=== PATIENT | female | born 1975 | race Caucasian/White ===

== ENCOUNTER → 2020-06-27 14:55 | Outpatient (CLI) | payer BC, SELFPAY ==
--- NOTE | ~2020-06-27 | US_ITS ---
EXAMINATION: US pelvic complete w TV DATE: 06/27/2020 15:40 INDICATION: Pelvic pain Comparison:No prior studies for comparison. TECHNIQUE: Multiple transabdominal and endovaginal sonographic images of the pelvis performed. FINDINGS: The uterus measures 9.3 x 3.4 x 4.72. There is a uterine fibroid anteriorly measuring 2.9 x 2.7 x 2 cm. The endometrial complex measures 8 mm. The ovaries are unremarkable. There is no free fluid in the pelvis. There are no abnormal masses seen on either side. IMPRESSION: 1. Uterine fibroid anteriorly measuring 2.9 cm. 2: Endometrium mildly prominent measuring 8 mm which is abnormal if the patient is postmenopausal. Cl inically correlate. Reviewed, dictated and finalized at location [facility]. IMPRESSION: 1. Uterine fibroid anteriorly measuring 2.9 cm. 2: Endometrium mildly prominent measuring 8 mm which is abnormal if the patient is postmenopausal. Clinically correlate.
== END ==
PROVIDERS: PCP Registered Nurse; Visit Provider Registered Nurse
DX: R10.2 Pelvic and perineal pain (principal); D25.9 Leiomyoma of uterus, unspecified
CPT/HCPCS: 76830; 76856

== ENCOUNTER → 2020-10-26 15:58 | Outpatient (CLI) | payer BC, SELFPAY ==
--- NOTE | ~2020-10-26 | MM_ITS ---
EXAMINATION: MM screening mario BI w naya HISTORY: Screening mammogram TECHNIQUE: Craniocaudal and mediolateral oblique 3-D tomosynthesis images were obtained and synthetic 2-D images were generated. CAD analysis was submitted and interpreted. COMPARISON: No prior mammogram is available for comparison at this institution. BREAST PARENCHYMAL COMPOSITION: There are scattered areas of fibroglandular density. FINDINGS: There is no evidence of suspicious mass, calcification, or architectural distortion to sugg est malignancy in either breast. There has been no suspicious interval change. IMPRESSION: 1. No mammographic evidence of malignancy. 2. Recommend routine screening mammography in one year. BI-RADS Category 1: Negative Reviewed, dictated and finalized at location A. [employer]
== END ==
PROVIDERS: PCP Registered Nurse; Visit Provider Registered Nurse
DX: Z12.31 Encounter for screening mammogram for malignant neoplasm of breast (principal)
CPT/HCPCS: 77063; 77067

== ENCOUNTER 2021-02-18 13:02 | Emergency (ER) | payer BC, SELFPAY ==
--- NOTE | 2021-02-18 14:01 | PC.NURSE ---
Call to triage, no answer.
[2021-02-18 14:10] VITALS: BP 150/105; PULSE 114; RESP 20; TEMP 36.6; O2SAT 99
[2021-02-18 14:41] LABS: Basophils Percent Auto 0.3 % (0.2-1.2); Eosinophils Percent Auto 0.4 % (0-4.4); Hematocrit 40.9 % (37.0-47.0); Hemoglobin 14.3 g/dL (12.0-15.0); Immature Granulocyte Absolute 0.03 K/mm3 (0.00-0.031); Immature Granulocyte Percent A 0.3 % (0-0.5); Lymphocytes Absolute Auto 2.06 K/mm3 (0.9-3.2); Mean Corpuscular Volume 88.7 fl (80-100); Monocytes Absolute Auto 0.5 K/mm3 (0.1-0.6); Monocytes Percent Auto 5.1 % (2.6-8.5); Neutrophils Absolute Auto 6.3 K/mm3 (1.3-6.7); Neutrophils Percent Auto 70.9 % (45.5-73.1); Platelet Count Result 292 k/mm3 (150-375); Red Blood Count 4.61 M/mm3 (4.2-5.4); Red Cell Distribution Width 12.1 % (11.5-14.5); White Blood Count 8.9 K/mm3 (4.5-10.0)
[2021-02-18 14:46] LABS: Add Urine Microscopic? YES; Appearance Urine Cloudy (Clear); Bacteria Urine 2+ /hpf; Bilirubin Urine Negative (Negative); Blood Urine 1+ (Negative); Color Urine Yellow (Yellow); Glucose Urine UA Negative (Negative); Ketones Urine Trace mg/dL (Negative); Leukocyte Esterase Ur 2+ LEU/UL (Negative); Mucus Urine Rare /lpf; Nitrate Urine Negative (Negative); Protein Urine Negative (Negative); Specific Grav Ur 1.013 (1.001-1.035); Squamous Epithelial Cell Urine Many /hpf (Few); Urobilinogen Urine Negative mg/dL (<2.0); WBC Urine 16-20 /hpf
[2021-02-18 15:05] LABS: Alanine Aminotransferase 42 U/L (4-35); Albumin Level 4.3 g/dL (3.5-5.1); Alkaline Phosphatase 54 U/L (38-126); Anion Gap 9 mmol/L (8-16); Aspartate Amino Transferase 68 U/L (14-36); Bilirubin,Total 0.3 mg/dL (0.2-1.3); Blood Urea Nitrogen 12 mg/dL (7-17); Calcium 9.3 mg/dL (8.4-10.2); Carbon Dioxide 25 mmol/L (22-30); Chloride 102 mmol/L (98-107); Estimated CRCL calculation 100 ml/min; Estimated Glomerular Filt Rate > 60; Glucose 131 mg/dL (65-105); Potassium 3.7 mmol/L (3.4-5.0); Sodium 136 mmol/L (137-145)
[2021-02-18 15:18] LABS: Troponin I < 0.012 ng/mL (0.000-0.034)
[2021-02-18 15:42] VITALS: BP 160/84; PULSE 78; RESP 18; O2SAT 99
--- NOTE | 2021-02-18 16:34 | ED.GENADULT ---
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 patient notes that she is on lisinopril presented to emergency department for evaluation after which she did recently get started on a new medication for anxiety which she just began taking patient is followed by her primary care doctor for these findings on arrival has no complaints and is feeling better had blood work drawn in triage which is unremarkable Review of Systems Review of Systems: All systems reviewed & are unremarkable except as noted in HPI and below PMFSH Past Medical History Medical History Anxiety Hypertension Exam Narrative: Exam Narrative: GENERAL: Well-appearing, well-nourished, and in no acute distress. HEAD: Normocephalic, atraumatic. EYES: PERRLA and EOMI. ENT: Nares clear, no rhinorrhea or epistaxis. Mucous membranes moist. CHEST: Clear to auscultation. No respiratory distress. No wheezes rales or rhonchi HEART: Regular rate and rhythm. No murmur heard. Normal peripheral pulses. EXTREMITIES: Normal range of motion. No edema. SKIN: Warm, dry, no rash. NEURO: No focal deficits. Alert and oriented x3. Cranial nerves II through XII grossly intact PSYCH: Normal mood and affect. Course Course Emergency Course: Patient presented with anxiety in the room in no distress at this time her hypertension I feel is likely related to anxiety her pressures have continued to be elevated but other than elevated blood pressure readings has had no other symptoms at this time there are no high risk changes in her evaluation it is felt that she can be discharged she will keep a record of her blood pressures and will have her follow with her primary care for this and has been provided with reasons to return she is agreeing with this plan Vital Signs Vital signs: Vital Signs Temperature 97.8 F 02/18/21 14:10 Pulse Rate 114 H 02/18/21 14:10 Respiratory Rate 20 02/18/21 14:10 Blood Pressure 150/105 H 02/18/21 14:10 Pulse Oximetry 99 02/18/21 14:10 Temperature 97.8 F 02/18/21 14:10 Pulse Rate 78 02/18/21 15:42 Respiratory Rate 18 02/18/21 15:42 Blood Pressure 160/84 H 02/18/21 15:42 Pulse Oximetry 99 02/18/21 15:42 Medical Decision Making MDM Narrative Medical decision making narrative: Patient in the room in no distress aware of case findings treatment plan and diagnosis agreeing to follow-up as instructed felt appropriate for outpatient reevaluation Vital Signs Vital Signs: Vital Signs Temperature 97.8 F 02/18/21 14:10 Pulse Rate 114 H 02/18/21 14:10 Respiratory Rate 20 02/18/21 14:10 Blood Pressure 150/105 H 02/18/21 14:10 Pulse Oximetry 99 02/18/21 14:10 Temperature 97.8 F 02/18/21 14:10 Pulse Rate 78 02/18/21 15:42 Respiratory Rate 18 02/18/21 15:42 Blood Pressure 160/84 H 02/18/21 15:42 Pulse Oximetry 99 02/18/21 15:42 Lab Data Result diagrams: 02/18/21 14:20 02/18/21 14:19 Labs: Lab Results 02/18/21 02/18/21 02/18/21 Range/Units 14:19 14:20 14:20 WBC 8.9 (4.5-10.0) K/mm3 RBC 4.61 (4.2-5.4) M/mm3 Hgb 14.3 (12.0-15.0) g/dL Hct 40.9 (37.0-47.0) % MCV 88.7 (80-100) fl MCH 31.0 (26-34) pg MCHC 35.0 (32-36) g/dl RDW 12.1 (11.5-14.5) % Plt Count 292 (150-375) k/mm3 MPV 9.0 (7.4-10.4) fl Immature Gran % (Auto) 0.3 (0-0.5) % Neut % (Auto) 70.9 (45.5-73.1) % Lymph % (Auto) 23.0 (18.3-44.2) % [place] % (Aut
== END 2021-02-18 17:31 | disposition home or self-care (01) ==
PROVIDERS: Emergency Medicine; Emergency Provider Emergency Medicine; PCP Registered Nurse
DX: I10 Essential (primary) hypertension (principal); F41.9 Anxiety disorder, unspecified
CPT/HCPCS: 36415; 80053; 81001; 81025; 84484; 85025; 87086; 87088; 99284

== ENCOUNTER → 2021-06-07 15:04 | Outpatient (CLI) | payer BC, SELFPAY ==
--- NOTE | ~2021-06-07 | US_ITS ---
US pelvic complete w TV DATE: 06/07/2021 15:32 INDICATION: Pelvic pain, left lower quadrant abdominal pain. Irregular vaginal bleeding. TECHNIQUE: Real-time imaging via transabdominal and transvaginal approaches COMPARISON: None FINDINGS: The uterus measures 8.1 cm height, 3.9 cm anteroposterior and 5.8 cm transverse dimension. The central endometrial echo complex measures approximately 8 mm AP dimension. Right ovary 1.9 x 1 x 1.8 cm, with vascular flow. Left ovary 2.3 x 2.2 x 1.8 cm, with vascular flow. No pelvic mass lesion or abnormal pelvic fluid collection is detected. IMPRESSION: No significant abnormality Reviewed, dictated and finalized at [facility]. Reviewed, dictated and finalized at location A. IMPRESSION: No significant abnormality
== END ==
PROVIDERS: PCP Student in an Organized Health Care Education/Training Program; Visit Provider Registered Nurse
DX: R10.2 Pelvic and perineal pain (principal)
CPT/HCPCS: 76830; 76856

== ENCOUNTER 2022-03-11 00:05 | Day surgery (SDC) | payer BC, SELFPAY ==
[2022-02-24 13:21] VITALS: BMI 28.4
[2022-03-11 06:35] VITALS: BP 129/97; PULSE 100; RESP 20; TEMP 36.1; O2SAT 99; BMI 29.3
[2022-03-11] MEDS: LACTATED RINGERS 1,000 ML 150 ML IV CONT (06:48)
--- NOTE | 2022-03-11 06:57 | WPDANESEPPF ---
Anes - Initial Pre Proc Eval Procedure: Operation Date: 03/11/22 07:30 Proposed Procedures p Colonoscopy - Gelacio Beltran MD Date/Time: 03/11/22 06:57 Surgeon: Gelacio Beltran MD Pre Op Diagnosis: Rectal Bleeding Patient Data Age: 46 Gender: F Height: 1.68 m Weight: 82.4 kg Last Vital Signs Temp 36.1 C L 03/11/22 06:35 Pulse 100 03/11/22 06:35 Resp 20 03/11/22 06:35 BP 129/97 H 03/11/22 06:35 Pulse Ox 99 03/11/22 06:35 O2 Del Method Room Air 03/11/22 06:35 Allergies Allergy/AdvReac Type Severity Reaction Status Date / Time Sulfa (Sulfonamide Allergy Vomiting Verified 03/11/22 06:20 Antibiotics) Home Medications Medication Instructions Recorded Confirmed Type alprazolam 0.5 mg tablet 0.5 mg PO DAILY PRN Anxiety 02/24/22 02/24/22 History buspirone 10 mg tablet 10 mg PO DAILY 02/24/22 02/24/22 History hydrochlorothiazide 12.5 mg tablet 12.5 mg PO DAILY 02/24/22 02/24/22 History lisinopril 10 mg tablet 10 mg PO DAILY 02/24/22 02/24/22 History norethindrone 1 mg-ethinyl 1 tablet PO DAILY 02/24/22 02/24/22 History estradiol 20 mcg (21)-iron 75 mg (7) tablet (Aurovela Fe 1-20 (28)) Patient hx anesthesia problems: none Family hx anesthesia problems: none Results Review: All pre-operative results and documents have been reviewed as part of the pre-operative evaluation. [facility] Past Medical History Medical History (Updated 03/11/22 @ 06:57 by Rafa Costa MD) Anxiety Hypertension Overweight Surgical History Surgical History (Updated 03/11/22 @ 06:58 by Rafa Costa MD) H/O colonoscopy Social History Social History Smoking packs per day: 1 Smoking cigarettes per day: 20.0 Years smoked: 10 Smoking pack-years: 10.00 Smoking status: Former smoker Alcohol intake: never Substance use: never Substance use type: does not use Living arrangements: with family Spiritual care concerns: No Anes - Eval Final PreProcedure Day of Procedure 03/11/22 06:57 Patient weight: overweight Heart: regular rate and rhythm Lungs: clear to auscultation Airway: Mallampati scale class 1 Last oral intake: >/= 8 hours ASA classification: II Emergent: no Anesthetic plan: proceed Anesthesia type and monitoring: general GIVS and standard monitoring Results Review: All pre-operative results and documents have been reviewed as part of the pre-operative evaluation. Informed Consent: The patient's anesthetic plan and its attendant risks and benefits were discussed with the patient/family/POA. Questions were solicited and answers provided to the satisfaction of the patient/family/POA.
--- NOTE | 2022-03-11 08:02 | P.CONGI_ITS ---
Assessment and Plan Assessment and plan (1) Rectal bleeding: Code(s): K62.5 - Hemorrhage of anus and rectum Status: Acute Assessment and Plan: Patient with intermittent rectal bleeding over the last month. Plan is for colonoscopy to assess more thoroughly. Also for screening purposes because of her age. High-fiber diet is advised for the possibility of hemorrhoids. Further recommendations will be given after endoscopy. GI Consult Note Consult date/time: 03/11/22 08:02 Rectal bleeding. Reason for consult: Rectal bleeding. HPI: Anna Lobo is a 46 year old female Presents on referral from Gynecology because of intermittent rectal bleeding. Patient notices intermittent bright red blood per rectum. Typically this occurs with a bowel movement. She states the toilet bowl week become bloody. It is difficult to know whether it is separate from her stool. She denies any abdominal pain. Her bowel habits are regular. Her family history is noncontributory. Patient reports previous colonoscopy 20 years ago that showed she had C difficile colitis she has subsequently recovered from that. Review of Systems Review of Systems: Review of systems noncontributory. [facility] Past Medical History Medical History (Updated 03/11/22 @ 08:05 by Gelacio Beltran MD) Anxiety Hypertension Overweight Surgical History Surgical History (Updated 03/11/22 @ 06:58 by Rafa Costa MD) H/O colonoscopy Social History Social History Smoking packs per day: 1 Smoking cigarettes per day: 20.0 Years smoked: 10 Smoking pack-years: 10.00 Smoking status: Former smoker Alcohol intake: never Substance use: never Substance use type: does not use Living arrangements: with family Spiritual care concerns: No Meds Home Medications and Allergies Home Medications Medication Instructions Recorded Confirmed Type alprazolam 0.5 mg tablet 0.5 mg PO DAILY PRN Anxiety 02/24/22 02/24/22 History buspirone 10 mg tablet 10 mg PO DAILY 02/24/22 02/24/22 History hydrochlorothiazide 12.5 mg tablet 12.5 mg PO DAILY 02/24/22 02/24/22 History lisinopril 10 mg tablet 10 mg PO DAILY 02/24/22 02/24/22 History norethindrone 1 mg-ethinyl 1 tablet PO DAILY 02/24/22 02/24/22 History estradiol 20 mcg (21)-iron 75 mg (7) tablet (Aurovela Fe 1-20 (28)) Allergies Allergy/AdvReac Type Severity Reaction Status Date / Time Sulfa (Sulfonamide Allergy Vomiting Verified 03/11/22 06:20 Antibiotics) Vital Signs Vital Signs - 24 hr 03/11/22 06:35 Temperature 97 F L Pulse Rate 100 Respiratory Rate 20 Blood Pressure 129/97 H Pulse Oximetry 99 Oxygen Delivery Room Air Exam Narrative: Physical exam reveals patient to be alert. Vital signs stable. HEENT exam is unremarkable. Patient is anicteric. Lungs are clear to auscultation and percussion. Heart is without murmur or extra sounds. Abdominal exam bowel sounds are present soft nontender with no organomegaly. Digital external rectal exam is normal.
[2022-03-11 08:04] VITALS: BP 99/61; PULSE 84; RESP 20; O2SAT 99
[2022-03-11 08:14] VITALS: BP 104/66; PULSE 82; RESP 20; O2SAT 99
[2022-03-11 08:24] VITALS: BP 117/77; PULSE 88; RESP 22; O2SAT 100
== END 2022-03-11 08:35 | disposition home or self-care (01) ==
PROVIDERS: PCP Registered Nurse; Visit Provider Internal Medicine Gastroenterology
PROC: 0DJD8ZZ Inspection of Lower Intestinal Tract, Via Natural or Artificial Opening Endoscopic (ICD-10-PCS; CPT 45378; principal; 2022-03-11 07:30)
DX: K62.5 Hemorrhage of anus and rectum (principal); K64.8 Other hemorrhoids; F41.9 Anxiety disorder, unspecified; Z86.19 Personal history of other infectious and parasitic diseases; Z87.891 Personal history of nicotine dependence; I10 Essential (primary) hypertension
CPT/HCPCS: 45378; J2704; J7120

== ENCOUNTER → 2022-06-26 17:11 | Outpatient (CLI) | payer BC, SELFPAY ==
--- NOTE | ~2022-06-26 | MM_ITS ---
EXAMINATION: MM screening mario BI w naya HISTORY: Screening mammogram TECHNIQUE: Craniocaudal and mediolateral oblique 3-D tomosynthesis images were obtained and synthetic 2-D images were generated. CAD analysis was submitted and interpreted. COMPARISON: 10/26/2020 bilateral screening mammogram: . BREAST PARENCHYMAL COMPOSITION: There are scattered areas of fibroglandular density. FINDINGS: There is no evidence of suspicious mass, calcification, or architectural distortion to sugg est malignancy in either breast. There has been no suspicious interval change. IMPRESSION: 1. No mammographic evidence of malignancy. 2. Recommend routine screening mammography in one year. BI-RADS Category 1: Negative Reviewed, dictated and finalized at location [facility].
== END ==
PROVIDERS: PCP Registered Nurse; Visit Provider Registered Nurse
DX: Z12.31 Encounter for screening mammogram for malignant neoplasm of breast (principal)
CPT/HCPCS: 77063; 77067

== ENCOUNTER → 2023-03-13 09:32 | Outpatient (CLI) | payer BC, SELFPAY ==
--- NOTE | ~2023-03-13 | XR_ITS ---
EXAMINATION: [id number] INDICATION: Right-sided chest pain TECHNIQUE: A frontal view of the chest and 3 views of the right ribs were obtained. COMPARISON: None. FINDINGS: The lungs are free of acute opacities. No pleural effusion or pneumothorax. The cardiomedia stinal silhouette is normal. No displaced rib fracture is identified. IMPRESSION: 1. No acute cardiopulmonary abnormality or evidence of displaced rib fracture. Reviewed, dictated and finalized at location B.
== END ==
PROVIDERS: PCP Registered Nurse; Visit Provider Registered Nurse
DX: R07.81 Pleurodynia (principal)
CPT/HCPCS: 71101

== ENCOUNTER 2024-09-27 15:59 | Outpatient (CLI) | payer BC, SELFPAY ==
--- NOTE | ~2024-09-27 | MM_ITS ---
EXAMINATION: MM screening mario BI w naya HISTORY: Screening TECHNIQUE: Craniocaudal and mediolateral oblique 3-D tomosynthesis images were obtained and synthetic 2-D images were generated. CAD analysis was submitted and interpreted. COMPARISON: Comparison to multiple prior studies sequentially, with oldest reviewed study dated 10/26. BREAST PARENCHYMAL COMPOSITION: Not dense: There are scattered areas of fibroglandular density. FINDINGS: There is no evidence of suspicious mass, calcification, or architectural distortion to sugg est malignancy in either breast. There has been no suspicious interval change. IMPRESSION: 1. No mammographic evidence of malignancy. 2. Recommend routine screening mammography in one year. BI-RADS Category 1: Negative Reviewed, dictated and finalized at location B. [employer]
== END 2024-09-27 16:00 | disposition home or self-care (01) ==
LOC: MICIMG 16:00
PROVIDERS: PCP Registered Nurse; Visit Provider Registered Nurse
DX: Z12.31 Encounter for screening mammogram for malignant neoplasm of breast (principal)
CPT/HCPCS: 77063; 77067